=== PATIENT | female | born 1990 | race Caucasian/White ===

== ENCOUNTER 2017-03-15 17:13 | Outpatient (CLI) | payer OTHER ==
[2017-03-15 18:15] VITALS: BP 132/85
[2017-03-15 18:17] LABS: ASPARTATE AMINO TRANSFERASE 17 U/L (15-37); BLOOD UREA NITROGEN 9 mg/dL (7-18)
[2017-03-15] MEDS ORDERED: PREN1TAB60 PO (18:50)
[2017-03-15] MEDS ORDERED: VALA500T4 PO (18:51)
[2017-03-15] MEDS ORDERED: VALACYCLOVIR 500MG TABLET PO SCH (21:00)
[2017-03-16] MEDS ORDERED: PRENATAL VIT/IRON/FA 1 EACH TABLET PO SCH (09:00)
== END 2017-03-15 19:00 | disposition home or self-care (01) ==
LOC: LDOP 17:13
PROVIDERS: ATTEND Obstetrics & Gynecology
DX: O13.3 Gestational [pregnancy-induced] hypertension without significant proteinuria, third trimester (principal); O26.893 Other specified pregnancy related conditions, third trimester; R42 Dizziness and giddiness; Z3A.37 37 weeks gestation of pregnancy
CPT/HCPCS: 36415; 59025; 80053; 82248; 82570; 84156; 84550; 85025; 99211; G0463

== ENCOUNTER 2017-03-26 07:25 | Inpatient (IN) | payer OTHER ==
[~2017-03-26] VITALS: Ht 157.5 cm; Wt 90.0 kg
[~2017-03-26 07:25] MED LIST: PREN1TAB60 PO; VALA500T4 PO
[2017-03-26] MEDS ORDERED: OXYTOCIN 30U/ 0.9% NaCL 500ML 500 ML IV PRN (20:12)
[2017-03-26] MEDS ORDERED: D5%-LACTATED RINGERS 1,000 ML IV SCH (20:12)
[2017-03-26] MEDS ORDERED: OXYTOCIN 30U/ 0.9% NaCL 500ML 500 ML IV ONE (20:12)
[2017-03-26] MEDS ORDERED: LIDOCAINE 1%, 20ML ONE (20:20)
[2017-03-26] MEDS ORDERED: MISOPROSTOL 200 MCG TABLET ONE (20:20)
[2017-03-26] MEDS ORDERED: NEWBORN KIT ONE (20:21)
[2017-03-26] MEDS ORDERED: OXYTOCIN 30U/ 0.9% NaCL 500ML 500 ML ONE (20:21)
[2017-03-26] MEDS ORDERED: MISOPROSTOL 25 MCG TABLET ONE (20:21)
[2017-03-26] MEDS ORDERED: MISOPROSTOL 25 MCG TABLET VG PRN (20:30)
[2017-03-26] MEDS ORDERED: CALCIUM CARBONATE 500 MG TAB.CHEW PO PRN (20:30)
[2017-03-26] MEDS ORDERED: ONDANSETRON 2MG/ML, 2ML IVPush PRN (20:30)
[2017-03-26] MEDS ORDERED: FENTANYL PF 100 MCG/2ML IVPush PRN (20:30)
[2017-03-26] MEDS ORDERED: ALUMINUM/MAG/SIMETHICONE 30 ML UDC PO PRN (20:30)
[2017-03-26] MEDS ORDERED: PLEASE ENTER HEIGHT AND WEIGHT MC SCH (20:30)
[2017-03-26] MEDS ORDERED: METOCLOPRAMIDE 5 MG/ML, 2ML IVPush PRN (20:30)
[2017-03-26] MEDS ORDERED: SODIUM CITRATE/CITRIC ACID 30 ML UDC PO PRN (20:30)
[2017-03-26] MEDS ORDERED: SODIUM CHLORIDE FLUSH 10ML SYR IVF PRN (21:00)
[2017-03-26] MEDS: LACTATED RINGERS 1,000 ML IV SCH (21:01)
[2017-03-26] MEDS ORDERED: FENTANYL PF 100 MCG/2ML ONE (22:38)
[2017-03-26] MEDS: OXYTOCIN 30U/ 0.9% NaCL 500ML 500 ML IV SCH (23:20)
[2017-03-26] MEDS ORDERED: HYDROcodone/APAP 5/325 TABLET ONE (23:28)
[2017-03-26] MEDS ORDERED: IBUPROFEN 600 MG TABLET ONE (23:28)
[2017-03-26] MEDS: IBUPROFEN 600 MG TABLET PO PRN (23:29)
[2017-03-26] MEDS ORDERED: MISOPROSTOL 200 MCG TABLET PO PRN (23:30)
[2017-03-26] MEDS: HYDROcodone/APAP 5/325 TABLET PO PRN (23:30)
[2017-03-26] MEDS ORDERED: METHYLERGONOVINE 0.2 MG/ML IM PRN (23:30)
[2017-03-26] MEDS ORDERED: HYDROcodone/APAP 5/325 TABLET PO PRN (23:30)
[2017-03-26] MEDS ORDERED: ONDANSETRON 2MG/ML, 2ML IV PRN (23:30)
[2017-03-27] MEDS ORDERED: OXYTOCIN 30U/ 0.9% NaCL 500ML 500 ML ONE (00:29)
[2017-03-27 00:50] VITALS: BP 130/80
[2017-03-27] MEDS: LACTATED RINGERS 1,000 ML IV SCH ×3 (04:12→20:12)
[2017-03-27 05:15] VITALS: BP 127/70
[2017-03-27] MEDS: IBUPROFEN 600 MG TABLET PO PRN ×3 (06:42→20:49)
[2017-03-27] MEDS: HYDROcodone/APAP 5/325 TABLET PO PRN ×3 (06:42→20:49)
[2017-03-27 07:10] VITALS: BP 118/66
[2017-03-27] MEDS: OXYTOCIN 30U/ 0.9% NaCL 500ML 500 ML IV SCH ×2 (09:20→19:20)
[2017-03-27] MEDS: PRENATAL VIT/IRON/FA 1 EACH TABLET PO SCH (09:24)
[2017-03-27] MEDS: DOCUSATE 100 MG CAPSULE PO PRN ×2 (09:24→20:34)
[2017-03-27] MEDS ORDERED: RHOGAM FROM BLOOD BANK 1 NOTE EA IM/IV ONE (09:30)
[2017-03-27 12:30] VITALS: BP 127/84
[2017-03-27 20:00] VITALS: BP 124/80
[2017-03-28] VITALS: BP 118/70
[2017-03-28] MEDS: LACTATED RINGERS 1,000 ML IV SCH (04:12)
[2017-03-28] MEDS: OXYTOCIN 30U/ 0.9% NaCL 500ML 500 ML IV SCH (05:20)
[2017-03-28] MEDS: DOCUSATE 100 MG CAPSULE PO PRN (08:05)
[2017-03-28] MEDS: IBUPROFEN 600 MG TABLET PO PRN (08:05)
[2017-03-28] MEDS: PRENATAL VIT/IRON/FA 1 EACH TABLET PO SCH (08:05)
[2017-03-28 08:10] VITALS: BP 135/95
[2017-03-28] MEDS ORDERED: DOCU-30 PO (11:16)
[2017-03-28] MEDS ORDERED: IBUP-1222 PO (11:16)
== END 2017-03-28 15:16 | disposition home or self-care (01) | DRG 775 ==
LOC: LDIP 19:59 → 2NW 03-27 00:33
PROVIDERS: ADMIT Obstetrics & Gynecology; ATTEND Obstetrics & Gynecology
PROC: 10E0XZZ Delivery of Products of Conception, External Approach (ICD-10-PCS; principal; 2017-03-26)
PROC: 30233S1 Transfusion of Nonautologous Globulin into Peripheral Vein, Percutaneous Approach (ICD-10-PCS; 2017-03-27)
DX: O36.5930 Maternal care for other known or suspected poor fetal growth, third trimester, not applicable or unspecified (principal); Z37.0 Single live birth; Z3A.38 38 weeks gestation of pregnancy; Z88.0 Allergy status to penicillin
CPT/HCPCS: 36415; 85025; 85461; 86850; 86900; J2790; J3010; J7120

== ENCOUNTER 2018-09-05 10:58 | Emergency (ER) | payer OTHER ==
[~2018-09-05] VITALS: Ht 157.5 cm; Wt 67.4 kg
[~2018-09-05 10:58] MED LIST changes: +DOCU-131 PO; +IBUP-1222 PO
[2018-09-05 11:23] VITALS: BP 137/88
[2018-09-05 11:52] LABS: BASOPHILS # (AUTO) 0.06 x10^3/uL (0-0.1); BASOPHILS % (AUTO) 1 % (0-1); EOSINOPHILS # (AUTO) 0.11 x10^3/uL (0-0.4); EOSINOPHILS % (AUTO) 1 % (1-7); LYMPHOCYTES # (AUTO) 2.58 x10^3/uL (1-3.4); LYMPHOCYTES % (AUTO) 27 % (22-44); MD NO; MEAN CORPUSCULAR HEMOGLOBIN 29.7 pg (27.0-34.8); MEAN CORPUSCULAR HGB CONC 33.5 g/dL (32.4-35.8); MEAN CORPUSCULAR VOLUME 88.5 fL (80-100); MEAN PLATELET VOLUME 7.2 fL (7.4-10.4); MONOCYTES % (AUTO) 7 % (2-9); NEUTROPHILS % (AUTO) 65 % (42-75); PLATELET COUNT 285 x10^3/uL (130-400); RED BLOOD COUNT 4.71 x10^6/uL (3.82-5.3)
[2018-09-05] MEDS ORDERED: VALA500T PO (12:21)
[2018-09-05 12:43] LABS: MICROSCOPIC NOT IND
[2018-09-05 12:44] LABS: CULTURE INDICATED? NO
== END 2018-09-05 13:43 | disposition home or self-care (01) ==
LOC: ED 13:23
DX: O26.892 Other specified pregnancy related conditions, second trimester (principal); R10.30 Lower abdominal pain, unspecified; Z3A.14 14 weeks gestation of pregnancy
CPT/HCPCS: 36415; 76801; 81003; 84702; 85025; 86901; 99284